=== PATIENT | female | born 1940 | race Caucasian/White ===

== ENCOUNTER 2016-08-18 12:45 | Emergency (ER) | payer OTHER ==
[2016-08-18 13:03] VITALS: BP 159/77
--- NOTE | 2016-08-18 13:42 | Diag Imaging Result Document ---
PROCEDURE NAME: FOOT COMPLETE LEFT - 08/18/2016 LEFT FOOT THREE VIEWS: FINDINGS: The bones are osteopenic. The toes are flexed. No fracture. No dislocation. IMPRESSION: No acute bony injury.
[2016-08-18] MEDS ORDERED: TORADOL IM ONE (14:03)
--- NOTE | 2016-08-18 14:03 | PROVIDER DOCUMENTATION ---
HPI-Musculoskeletal Pain/Inj - GENERAL Chief Complaint: Extremity Injury Stated Complaint: TOE PAIN Time Seen by Provider: 08/18/16 13:09 Source: patient - HX OF PRESENT ILLNESS-MUSKULOSKELTAL Nature of Presenting Problem: Pt is a 75 yof with a hx of MR from that presents to er with caretakers with cc of left toe swelling and bruising unknown if any injury. Caretakers reports pt has hx of osteoporosis and osteoarthritis. Quality of Pain: reports: aching Severity in ED: moderate Onset/Duration: this morning Timing: still present Any recent injury?: No Locality of Occurance: Home Similar Symptoms Previously?: No Recently seen or treated by another doctor?: No Review of Systems - Adult - REVIEW OF SYSTEMS - ADULT Constitutional: denies: chills, fever, fatique Eyes: reports: no symptoms reported Ears, Nose, Mouth & Throat: reports: no symptoms reported Cardiovascular: denies: chest pain, irregular heart rate, orthopnea, syncope Respiratory: reports: no symptoms reported Gastrointestinal: reports: no symptoms reported Genitourinary: reports: no symptoms reported Musculoskeletal: reports: see HPI. denies: frequent leg cramps, muscle aches, muscle weakness, neck pain Integumentary: reports: no symptoms reported Neurological: reports: no symptoms reported Psychiatric: reports: no symptoms reported Endocrine: reports: no symptoms reported Hematologic/Lymphatic: reports: no symptoms reported Allergic/Immunologic: reports: no symptoms reported All Other Systems: Reviewed and Negative Past History - Adult - PAST MEDICAL HISTORY-ADULT Review of Records: reports: Nursing Assessment Review Major Childhood Illnesses: reports: denies history Cardiovascular: reports: HTN, hyperlipidemia Respiratory: reports: denies history Gastrointestinal: reports: GERD Obstetrical/Gynecological: reports: denies history Genitourinary: reports: denies history Musculoskeletal: reports: arthritis, osteoporosis Neurological: reports: denies history Endocrine/Immune: reports: denies history Other Conditions: reports: other (mental retardation) - PRIOR SURGERIES/PROCEDURES Surgical/Procedure History: reports: none (aid denies hx) - PRIOR HOSPITALIZATIONS Prior Hospitalizations: reports: none - IMMUNIZATION STATUS Childhood Immunizations: UTD Flu Vaccine: See Nurse Assessment - FAMILY HISTORY Family History: reviewed, not pertinent - SOCIAL HISTORY Smoking: denies Substance Use: none/never Physical Exam-Injury Related - Physical Exam-Injury Related Initial Vital Signs Reviewed: Yes General Appearance: appears well, alert, no apparent distress Eyes: PERRL/EOMI Head, Ears, Nose, Mouth & Throat: moist mucous membranes Neck: non-tender, full range of motion, supple, normal inspection Respiratory: chest non-tender, lungs clear, normal breath sounds, no pleuratic chest pain, no respiratory distress, no accessory muscle use Cardiovascular: regular rate, rhythm Abdominal Exam: normal bowel sounds, non tender, soft, no organomegaly, no pulsatile mass Extremity: normal range of motion, swelling, tenderness (left great toe swelling and bruising). negative: pulse deficit, pedal edema Integumentary: normal color, warm/dry Psych/Mental Status: normal mood/affect, normal thought content, normal thought process Progress - PLAN OF CARE/RESULTS Progress/Plan/Lab Results: Orders Category Date Time Status FOOT COMPLETE LEFT [RAD] Stat Exams 08/18/16 13:09 Completed Vital Signs - 24 hr 08/18/16 13:00 Temperature 97.3 F L Pulse Rate 94 H Respiratory 20 Rate Blood Pressure 159/77 O2 Sat by Pulse 97 Oximetry Pt will be checked for gout Orders Category Date Time Status FOOT COMPLETE LEFT [RAD] Stat Exams 08/18/16 13:09 Completed Orders Category Date Time Status FOOT COMPLETE LEFT [RAD] Stat Exams 08/18/16 13:09 Completed CBC WITH ELECTRONIC DIFF [HEME] Stat Lab 08/18/16 14:25 Completed COMPREHENSIVE METABOLIC PANEL [CHEM] Stat Lab 08/18/16 14:25 Completed URIC ACID [CHEM] Stat Lab 08/18/16 14:25 Completed Ketorolac [Toradol] Med 08/18/16 14:03 Discontinued 60 mg IM NOW ONE Laboratory Tests 08/18/16 08/18/16 14:25 14:25 WBC 6.29 RBC 4.06 L Hgb 12.8 Hct 38.6 MCV 95.1 MCH 31.5 H MCHC 33.2 RDW Std Deviation 14.6 H Plt Count 213 MPV 10.9 H Immature Gran % (Auto) 0.2 Neut % (Auto) 44.5 Lymph % (Auto) 40.4 [place] % (Auto) 12.1 H Eos % (Auto) 2.5 Baso % (Auto) 0.3 Immature Gran # (Auto) 0.01 Neut # (Auto) 2.80 Lymph # (Auto) 2.54 [place] # (Auto) 0.76 H Eos # (Auto) 0.16 Baso # (Auto) 0.02 Sodium 144 Potassium 4.2 Chloride 111 H Carbon Dioxide 22 L Anion Gap 11 BUN 11 Creatinine 0.8 Estimated GFR/1.73 m2 > 60 BUN/Creatinine Ratio 14 Glucose 108 H Calculated Osmolality 287 Uric Acid 3.6 Calcium 8.7 L Total Bilirubin < 0.15 L AST 27 ALT 20 Alkaline Phosphatase 95 Total Protein 7.0 Albumin 4.1 Globulin 3.0 Albumin/Globulin Ratio 1.0 - XRAY 1 XRAY: Left XRAY Study: Foot Impression: Normal XRAY Interpretation: no fx Departure - Departure Time of Disposition Order: 14:58 DIAGNOSIS: Arthritis Contusion Qualifiers: Encounter type: initial encounter Contusion area: toe Toe: unspecified toe Laterality: left Qualified Code(s): S90.122A - Contusion of left lesser toe(s) without damage to nail, initial encounter Disposition: HOME 01 Certified Medical Emergency: Emergent Condition: Stable Additional Instructions: ED Follow Up Instructions: You have been treated by a care provider in the Emergency Department. These instructions are being provided to you so you can have an understanding of how to care for yourself upon discharge. Upon discharge from the Emergency Department, you are responsible for making arrangements for follow-up care by a physician of your choice. Take all prescribed medications as directed. Return to the Emergency Department immediately for any new or worsening symptoms. You may call the Physician Referral phone number at [phone] to obtain a list of Physicians who are taking new patients. Prescriptions: Cephalexin [Keflex] 500 mg PO 4XDAY #30 capsule Ibuprofen [Motrin] 800 mg PO Q8H PRN PRN #30 tablet PRN Reason: Pain Referrals: Vito Moore [Primary Care Provider] - Attestation - Scribe Verification/Attestation Scribe:: Vinicio Ernst Acting as Scribe for:: Faustino Clark Scribe documention review:: This chart was documented by a scribe and accurately reflects the service the provider performed and the decisions made by the provider.
[2016-08-18 14:27] LABS: MANUAL DIFF NEEDED? NO
[2016-08-18 14:29] LABS: BASO% 0.3 % (0.0-0.8); EOS# 0.16 X1000 (0.0-0.7); EOS% 2.5 % (0.0-10.0); HEMATOCRIT 38.6 % (37.0-47.0); HEMOGLOBIN 12.8 g/dL (12.0-16.0); IMM GRAN# 0.01 X1000 (0.0-0.04); IMM GRAN% 0.2 % (0.0-0.5); LYMPH# 2.54 X1000 (1.2-3.4); LYMPH% 40.4 % (20.5-51.1); MCH 31.5 PG (27-31); MCHC 33.2 g/dL (33-37); MCV 95.1 FL (81-99); MONO# 0.76 X1000 (0.11-0.59); MONO% 12.1 % (1.7-9.3); MPV 10.9 FL (7.4-10.4); NEUT% 44.5 % (42.2-75.2); PLT 213 X1000 (130-400); RBC 4.06 XMIL (4.2-5.4)
[2016-08-18 14:48] LABS: AGAP 11; ALBUMIN 4.1 g/dL (3.5-5.0); ALKALINE PHOSPHATASE 95 U/L (32-104); BUN 11 mg/dL (8-22); CALCIUM 8.7 mg/dL (8.8-10.2); CHLORIDE 111 mmol/L (98-107); COSMO 287; GOT 27 U/L (10-30); GPT 20 U/L (10-36); POTASSIUM 4.2 mmol/L (3.5-5.1); SODIUM 144 mmol/L (136-145); TCO2 22 mmol/L (25-35); TOTAL BILIRUBIN < 0.15 mg/dL (0.20-1.00); URIC ACID 3.6 mg/dL (2.4-5.7)
== END 2016-08-18 15:13 | disposition home or self-care (01) ==
LOC: P.ED 12:45
DX: S90.112A Contusion of left great toe without damage to nail, initial encounter (principal); M19.90 Unspecified osteoarthritis, unspecified site; M79.675 Pain in left toe(s); R22.32 Localized swelling, mass and lump, left upper limb; I10 Essential (primary) hypertension; E78.5 Hyperlipidemia, unspecified; K21.9 Gastro-esophageal reflux disease without esophagitis; M81.0 Age-related osteoporosis without current pathological fracture; Z79.899 Other long term (current) drug therapy; F79 Unspecified intellectual disabilities; Z79.82 Long term (current) use of aspirin
CPT/HCPCS: 80053; 84550; 85025; 96372; J1885